=== PATIENT | female | born 1965 ===

== ENCOUNTER 2018-08-07 10:31 | Outpatient (CLI) | payer OTHER ==
[~2018-08-07] VITALS: Ht 167.6 cm; Wt 72.6 kg
== END 2018-08-07 10:45 | disposition home or self-care (01) ==
LOC: OFIC 805 10:31
DX: H60.592 Other noninfective acute otitis externa, left ear (principal); H92.02 Otalgia, left ear

== ENCOUNTER 2018-08-18 09:23 | Outpatient (CLI) | payer OTHER ==
[~2018-08-18] VITALS: Ht 152.4 cm; Wt 72.6 kg
== END 2018-08-18 09:40 | disposition home or self-care (01) ==
LOC: OFIC 805 09:23
DX: H92.02 Otalgia, left ear (principal); H90.42 Sensorineural hearing loss, unilateral, left ear, with unrestricted hearing on the contralateral side; R42 Dizziness and giddiness